=== PATIENT | male | born 2000 | race Caucasian/White ===

== ENCOUNTER 2019-02-08 19:41 | Emergency (ER) | payer BC ==
[~2019-02-08] VITALS: Ht 182.9 cm; Wt 79.5 kg
[2019-02-08 19:54] VITALS: BP 132/93; TEMP 98
[2019-02-08] MEDS ORDERED: ADVIL LIQUI-GE200 MG PO (20:12)
[2019-02-08 21:32] VITALS: PULSE 94
== END 2019-02-08 21:32 | disposition home or self-care (01) ==
LOC: COL.ER 19:41
DX: S50.02XA Contusion of left elbow, initial encounter (principal); V13.4XXA Pedal cycle driver injured in collision with car, pick-up truck or van in traffic accident, initial encounter; Y92.410 Unspecified street and highway as the place of occurrence of the external cause